=== PATIENT | female | born 1985 | race Caucasian/White ===

== ENCOUNTER 2017-01-21 02:21 | Emergency (ER) | payer BC, OTHER ==
[~2017-01-21] VITALS: Ht 152.4 cm; Wt 99.8 kg
[~2017-01-21 02:21] MED LIST: HYDR1TAB PO; NYST1POW15 TOP; SULF1TAB38 PO
--- OUTSIDE RECORDS SUMMARY | 2017-01-21 02:27 | XMS REPORT ---
Author ANDREA Gaming [facility] eClinicalWorks Address Unknown Phone Unavailable Care Team Providers Care Sample Card Maker Name Role Phone ANDREA DWYER CP Unavailable Allergies, Adverse Reactions, Alerts Substance Reaction Event Type N.K.D.A. Info Not Available Non Drug Allergy Problems Problem Type Condition Code Onset Dates Condition Status Assessment Dental examination Z01.20 Active Medications Medication Code System Code Instructions Start Date End Date Status Dosage [employer] [facility] [address]-46 5-325 MG Orally every 6 hrs Mar 25, 2016 Mar 29, 2016 1 tablet as needed Amoxicillin [facility] [address]-21 500 MG Orally 4 times daily Mar 25, 2016 Apr 01, 2016 1 capsule Procedures Procedure Coding System Code Date INTRAORL-PERIAPICAL 1 FILM 71828 CPT-4 D0220 Mar 25, 2016 LTD ORAL EVALUATION - PROBLEM FOCUS CPT-4 D0140 Mar 25, 2016 Vital Signs Date/Time: Mar 25, 2016 Blood Pressure Diastolic 75 mmHg Blood Pressure Systolic 128 mmHg Results No Known Results Summary Purpose eClinicalWorks Submission
--- OUTSIDE RECORDS SUMMARY | 2017-01-21 02:27 | XMS REPORT | Continuity of Care Document ---
Author Author [facility] Organization [facility] Address Unknown Phone Unavailable Allergies Active Description Code Type Severity Reaction Onset Reported/Identified Relationship to Patient Clinical Status Yes No Known Drug Allergies [id number] Drug Allergy Unknown N/ A 01/04/2009 Medications Problems Date Dx Coded Attending Type Code Diagnosis Diagnosed By 03/23/2009 Ot 727.04 04/09/2009 Ot 719.42 04/09/2009 Ot 727.05 04/09/2009 Ot 832.01 04/09/2009 Ot E000.8 04/09/2009 Ot E029.9 04/09/2009 Ot E927.0 04/09/2009 Ot V57.21 04/25/2009 Ot 719.42 04/25/2009 Ot 727.05 04/25/2009 Ot 832.01 04/25/2009 Ot E000.8 04/25/2009 Ot E029.9 04/25/2009 Ot E927.0 04/25/2009 Ot V57.21 10/08/2012 ERIKA STEWART, NURYS Turner Ot 574.20 10/08/2012 ERIKA STEWART, NURYS [place] Ot 620.2 10/08/2012 ERIKA STEWART, NURYS Turner Ot 789.00 02/20/2013 KHADRA FUENTES MD Ot 682.2 02/20/2013 KHADRA FUENTES MD Ot 782.2 05/10/2014 Ot 959.7 05/10/2014 Ot E000.8 05/10/2014 Ot E030 05/10/2014 Ot E849.6 05/10/2014 Ot E888.9 05/10/2014 Ot 719.07 05/10/2014 Ot 719.47 05/10/2014 Ot 719.47 05/10/2014 Ot 959.7 05/10/2014 Ot E000.8 05/10/2014 Ot E849.4 05/10/2014 Ot E928.9 02/11/2015 Ot 719.07 02/11/2015 Ot 719.47 02/11/2015 Ot 719.47 02/11/2015 Ot 959.7 02/11/2015 Ot E000.8 02/11/2015 Ot E849.4 02/11/2015 Ot E928.9 02/11/2015 KHADRA FUENTES MD Ot 218.9 02/11/2015 KHADRA FUENTES MD Ot 789.02 02/11/2015 Ot 719.07 02/11/2015 Ot 719.47 02/11/2015 Ot 719.47 02/11/2015 Ot 959.7 02/11/2015 Ot E000.8 02/11/2015 Ot E849.4 02/11/2015 Ot E928.9 Procedures Results Encounters ACCT No. Visit Date/Time Discharge Status Pt. Type Provider Facility Loc./Unit Complaint [id number] 02/11/2015 04:40:00 2014 06:28:00 DIS Emergency KHADRA FUENTES MD [facility] ER [id number] 01/14/2015 14:37:00 2014 23:59:59 CLS Outpatient GIO LAURENT [facility] QUICK [id number] 02/20/2013 17:33:00 2012 19:33:00 DIS Emergency KHADRA FUENTES MD [facility] ER [id number] 10/08/2012 16:56:00 2012 18:03:00 DIS Emergency NURYS JAMES MD [facility] ER [id number] 05/10/2014 14:32:00 Document Registration [id number] 09/03/2011 10:44:00 Document Registration [id number] 02/12/2010 11:59:00 Document Registration [id number] 08/09/2009 12:05:00 Document Registration [id number] 04/11/2009 09:14:00 Document Registration [id number] 04/04/2009 10:51:00 Document Registration [id number] 03/22/2009 11:30:00 Document Registration
[2017-01-21] MEDS ORDERED: HYDR30SU6 RC (02:47)
--- NOTE | 2017-01-21 02:48 | ED GI ---
General Chief Complaint: Rect Problems Stated Complaint: RECTAL BLEEDING Source of Information: Patient History of Present Illness Time Seen By Provider: 02:35 Initial Comments PT STATES SHE HAD A BM EARLIER THIS EVENING AT 1800 AND SHE NOTICED A SMALL AMOUNT OF BRIGHT RED BLOOD ON THE TISSUE WITH WIPING DENIES HAVING CONSTIPATION OR STRAINING TO HAVE A BOWEL MOVEMENT WENT TO WORK AT 2200 TONIGHT AT [employer]. SHE WENT TO THE BATHROOM TO URINATE WHILE AT WORK AND NOTICED BRIGHT RED BLOOD ON TISSUE WHEN SHE WIPED HER RECTAL AREA AGAIN SO LEFT WORK AND CAME STRAIGHT HERE NO RECTAL PAIN NO ABDOMINAL OR BACK PAIN NO URINARY SYMPTOMS NO VAGINAL BLEEDING OR DISCHARGE NO HISTORY OF SIMILAR PCP: [facility] Allergies and Home Medications Allergies Coded Allergies: No Known Drug Allergies (Verified Allergy, Unknown, 01/04/09) Home Medications Hydrocortisone Acetate 30 Mg Supp.rect, 30 MG RC BID, #10 Prescribed by: GHASSAN STRANGE on 01/21/17 0247 Review of Systems Constitutional: no symptoms reported Respiratory: No Symptoms Reported Cardiovascular: No Symptoms Reported Gastrointestinal: See HPI Genitourinary: No Symptoms Reported Musculoskeletal: no symptoms reported Skin: no symptoms reported Psychiatric/Neurological: No Symptoms Reported Endocrine: No Symptoms Reported Hematologic/Lymphatic: No Symptoms Reported Past Fsuovgd-Htxrma-Nqmmug Hx Patient Social History Alcohol Use: Denies Use Recreational Drug Use: No Smoking Status: Current Everyday Smoker (1/2 -1 PPD) Type Used: Cigarettes Recent Foreign Travel: No Contact w/Someone Who Travel: No Surgeries HX Surgeries: Yes (UMB.HERNIA REPAIR; PILONIDAL ABSCESS/CYST; D&C; X 2; RIGHT WRIST SURGEYR TO REMOVE GLASS) Surgeries: Abdominal, Appendectomy, Section, Orthopedic, Tubal Ligation Respiratory Hx Respiratory Disorders: No Cardiovascular Hx Cardiac Disorders: No Neurological Hx Neurological Disorders: No Reproductive System : No Hx Reproductive Disorders: Yes (X1 MISCARRIAGE) 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 Genitourinary Hx Genitourinary Disorders: No Gastrointestinal Hx Gastrointestinal Disorders: No Musculoskeletal Hx Musculoskeletal Disorders: No Endocrine Hx Endocrine Disorders: No HEENT HX ENT Disorders: No Cancer Hx Cancer: No Psychosocial Hx Psychiatric Problems: No Integumentary HX Skin/Integumentary Disorder: No Blood Transfusions Hx Blood Disorders: No Physical Exam Vital Signs VS - Last 72 Hours, by Label 01/21/17 01/21/17 02:27 02:50 Temp 97.7 Pulse 67 0 Resp 18 0 B/P (MAP) 145/91 Pulse Ox 99 0 O2 Delivery Room Air Capillary Refill : General Appearance: WD/WN, no apparent distress Respiratory: normal breath sounds Cardiovascular: regular rate, rhythm Gastrointestinal: normal bowel sounds, non tender, soft, no organomegaly, no pulsatile mass Rectal: hemorrhoids (SMALL, NON-THROMBOSED/NON-INFLAMED HEMORRHOIDS AT 12:00 AND 6:00, WITH SMALL FISSUE ON THE 6:00 HEMORRHOID, WITH SCANT AMOUNT OF DRIED BLOOD OVER IT. NON-TENDER. NO EVIDENCE OF ABSCESS. ), mass Extremities: normal inspection Neurologic/Psychiatric: no motor/sensory deficits, alert, normal mood/affect, oriented x 3 Skin: normal color, warm/dry Progress/Results/Core Measures Results/Orders Vital Signs/I&O Vital Sign - Last 12Hours 01/21/17 01/21/17 02:27 02:50 Temp 97.7 Pulse 67 0 Resp 18 0 B/P (MAP) 145/91 Pulse Ox 99 0 O2 Delivery Room Air Departure Impression Impression: Primary Impression: Anal fissure Additional Impression: Bleeding external hemorrhoids Disposition: HOME, SELF-CARE Condition: Stable Departure-Patient Inst. Referrals: NO,LOCAL PHYSICIAN (PCP/Family) Primary Care Physician Patient Instructions: Hemorrhoids (DC), Anal Fissure (DC) Add. Discharge Instructions: TAKE COLACE STOOL SOFTENER DAILY--UP TO 4 PILLS A DAY LOTS OF CLEAR LIQUIDS FOLLOW UP WITH IN 3-4 DAYS FOR FURTHER CARE All discharge instructions reviewed with patient and/or family. Voiced understanding. Scripts Hydrocortisone Acetate (Proctocort) 30 Mg Supp.rect 30 MG RC BID, #10 SUPP.RECT Prov: GHASSAN STRANGE DO 01/21/17 GHASSAN STRANGE DO Jan 21, 2017 02:48
[2017-01-21 02:50] VITALS: BP 0/0
== END 2017-01-21 02:50 | disposition home or self-care (01) ==
LOC: EDUNIT# 02:21 → ER 02:23
DX: K60.2 Anal fissure, unspecified (principal); K64.4 Residual hemorrhoidal skin tags; F17.210 Nicotine dependence, cigarettes, uncomplicated; Z87.19 Personal history of other diseases of the digestive system; Z87.59 Personal history of other complications of pregnancy, childbirth and the puerperium; Z90.49 Acquired absence of other specified parts of digestive tract; Z98.51 Tubal ligation status
CPT/HCPCS: 99282

== ENCOUNTER → 2017-04-06 | Outpatient (CLI) | payer BC ==
[~2017-04-06] MED LIST changes: +HYDR30SU6 RC
--- NOTE | 2017-04-06 18:45 | Diagnostic Imaging Report ---
Indication: Palpable abnormality of the fourth finger. Findings: AP, oblique and lateral views of the right hand reveal no fracture or malalignment. There is no abnormal lytic or sclerotic focus. No radiopaque foreign body is seen. Impression: No acute osseous abnormality is identified. Dictated by: Dictated on workstation # [id number]
== END ==
LOC: RAD 17:57
PROVIDERS: ATTEND Nurse Practitioner Family
DX: M79.641 Pain in right hand (principal)
CPT/HCPCS: 73130

== ENCOUNTER 2019-06-15 08:27 | Outpatient (RCR) | payer BC | END 2019-07-06 10:53 | disposition home or self-care (01) | PROVIDERS: ATTEND Nurse Practitioner Primary Care | DX: G56.01 Carpal tunnel syndrome, right upper limb (principal); M25.511 Pain in right shoulder; M62.81 Muscle weakness (generalized) ==

== ENCOUNTER 2021-06-25 15:51 | Emergency (ER) | payer BC ==
[~2021-06-25] VITALS: Ht 149 cm; Wt 106.5 kg
[2021-06-25 16:07] LABS: BASOPHILS % (AUTO) 0 % (0-10); EOSINOPHILS # (AUTO) 0.1 10^3/uL (0.0-0.3); EOSINOPHILS % (AUTO) 2 % (0-10); HEMATOCRIT 45 % (35-52); HEMOGLOBIN 14.5 g/dL (11.5-16.0); LYMPHOCYTES # (AUTO) 2.6 10^3/uL (1.0-4.0); LYMPHOCYTES % (AUTO) 31 % (12-44); MEAN CORPUSCULAR HEMOGLOBIN 27 pg (25-34); MEAN CORPUSCULAR HGB CONC 33 g/dL (32-36); MEAN CORPUSCULAR VOLUME 82 fL (80-99); MEAN PLATELET VOLUME 11.5 fL (9.0-12.2); MONOCYTES # (AUTO) 0.5 10^3/uL (0.0-1.0); MONOCYTES % (AUTO) 6 % (0-12); NEUTROPHILS # (AUTO) 5.1 10^3/uL (1.8-7.8); NEUTROPHILS % (AUTO) 61 % (42-75); PLATELET COUNT 218 10^3/uL (130-400); WHITE BLOOD COUNT 8.3 10^3/uL (4.3-11.0)
[2021-06-25] MEDS ORDERED: FAMOTIDINE 20 MG (PEPCID) TABLET PO STA (16:09)
[2021-06-25] MEDS ORDERED: LIDOCAINE 2% VISCOUS 15 ML UDC PO ONE (16:15)
[2021-06-25] MEDS ORDERED: ASPIRIN 81 MG CHEW (CHILDREN'S ASA) PO ONE (16:15)
[2021-06-25] MEDS ORDERED: ONDANSETRON 4 MG/2 ML (SDV) Z0FRAN IVP ONE (16:15)
[2021-06-25] MEDS ORDERED: ANTACID SUSP 30 ML UDC (MYLANTA) PO ONE (16:15)
[2021-06-25 16:18] LABS: ALBUMIN 4.2 GM/DL (3.2-4.5); POTASSIUM 4.1 MMOL/L (3.6-5.0); PROTHROMBIN TIME PATIENT 13.2 SEC (12.2-14.7)
--- NOTE | 2021-06-25 16:19 | Diagnostic Imaging Report ---
INDICATION: Chest pain. TECHNIQUE: Frontal chest obtained at 04:19 p.m. FINDINGS: Heart and mediastinal silhouette are normal in appearance. The lungs are clear. There is no pneumothorax or pleural fluid. IMPRESSION: Negative chest. Dictated by: Dictated on workstation # [id number]
[2021-06-25 16:20] LABS: CALCIUM 9.4 MG/DL (8.5-10.1)
[2021-06-25 16:21] LABS: TOTAL PROTEIN 7.5 GM/DL (6.4-8.2)
[2021-06-25 16:23] LABS: BILIRUBIN,TOTAL 0.4 MG/DL (0.1-1.0)
[2021-06-25 16:24] LABS: CREATININE SERUM 0.78 MG/DL (0.60-1.30)
[2021-06-25 16:27] LABS: MAGNESIUM 2.1 MG/DL (1.6-2.4)
--- NOTE | 2021-06-25 16:57 | ED Chest Pain ---
General Chief Complaint: Chest Pain Stated Complaint: CHEST PAIN Nursing Triage Note: PT PRESENTS TO ED VIA POV FROM HOME WITH COMPLAITNS OF CP STARTING AT 0530 THIS AM WHILE AT WORK. Source: patient Exam Limitations: no limitations History of Present Illness Date Seen by Provider: Jun 25, 2021 Time Seen by Provider: 15:55 Initial Comments This 36-year-old woman presents to the emergency room with complaints of a chest heaviness in the central chest that started while working at [employer] this morning around 0530 this morning. Pain has been constant. She denies any exacerbating or alleviating factors. She started metformin yesterday and wonders if perhaps that was the cause. She denies any associated symptoms such as shortness of breath, cough, lightheadedness, nausea, vomiting, diarrhea, fever, etc. Allergies and Home Medications Allergies Coded Allergies: No Known Drug Allergies (Verified Allergy, Unknown, 01/04/09) Patient Home Medication List Home Medication List Reviewed: Yes Hydrocortisone Acetate (Proctocort) 30 Mg Supp.rect, 30 MG RC BID Prescribed by: GHASSAN STRANGE on 01/21/17 0247 Omeprazole (Omeprazole) 20 Mg Capsule.dr, 20 MG PO BID Prescribed by: ZACKERY TABOR on 06/25/21 1714 Review of Systems Review of Systems Constitutional: no symptoms reported EENTM: No Symptoms Reported Respiratory: No Symptoms Reported Cardiovascular: See HPI Gastrointestinal: See HPI Genitourinary: No Symptoms Reported Musculoskeletal: no symptoms reported Skin: no symptoms reported Psychiatric/Neurological: No Symptoms Reported Endocrine: No Symptoms Reported Hematologic/Lymphatic: No Symptoms Reported Past Wbovzwe-Ansqaw-Twwdqx Hx Patient Social History Tobacco Use?: Yes Tobacco type used: Cigarettes Smoking Status: Current Everyday Smoker Substance use?: No Alcohol Use?: No Pt feels they are or have been: No Immunizations Up To Date First/Initial COVID19 Vaccinat: NOVEMBER 2020 COVID19 Vaccine [employer]: [employer] Past Medical History Surgery/Hospitalization HX: PMH: C-SEC, DNC, TUBAL, APPY DIABETES Surgeries: Yes (UMB.HERNIA REPAIR,COCCYX CYST,WRIST SURG.) Abdominal, Appendectomy, Section, Orthopedic (Wrist), Tubal Ligation Respiratory: No Cardiac: Yes High Cholesterol Neurological: No Reproductive Disorders: Yes (X1 MISCARRIAGE) 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 oz. 99.932388oh; 47.00 BMI Method:Stated General Appearance: No Apparent Distress, WD/WN HEENT: PERRL/EOMI, Normal ENT Inspection Neck: Normal Inspection Respiratory: Lungs Clear, Normal Breath Sounds, No Accessory Muscle Use, No Respiratory Distress, Other (Central anterior chest wall tender to palpation) Cardiovascular: Regular Rate, Rhythm, No Edema, No Murmur, Normal Peripheral Pulses Gastrointestinal: Normal Bowel Sounds, Soft, Tenderness (Epigastrium and left upper quadrant) Extremity: Normal Inspection, Non Tender, No Calf Tenderness, No Pedal Edema Neurologic/Psychiatric: Alert, Oriented x3, No Motor/Sensory Deficits, Normal Mood/Affect Skin: Normal Color, Warm/Dry Progress/Results/Core Measures Results/Orders Lab Results Laboratory Tests Test 06/25/21 15:58 Range/Units White Blood Count 8.3 4.3-11.0 10^3/uL Red Blood Count 5.41 H 3.80-5.11 10^6/uL Hemoglobin 14.5 11.5-16.0 g/dL Hematocrit 45 35-52 % Mean Corpuscular Volume 82 80-99 fL Mean Corpuscular Hemoglobin 27 25-34 pg Mean Corpuscular Hemoglobin Concent 33 32-36 g/dL Red Cell Distribution Width 13.0 10.0-14.5 % Platelet Count 218 130-400 10^3/uL Mean Platelet Volume 11.5 9.0-12.2 fL Immature Granulocyte % (Auto) 1 % Neutrophils (%) (Auto) 61 42-75 % Lymphocytes (%) (Auto) 31 12-44 % Monocytes (%) (Auto) 6 0-12 % Eosinophils (%) (Auto) 2 0-10 % Basophils (%) (Auto) 0 0-10 % Neutrophils # (Auto) 5.1 1.8-7.8 10^3/uL Lymphocytes # (Auto) 2.6 1.0-4.0 10^3/uL Monocytes # (Auto) 0.5 0.0-1.0 10^3/uL Eosinophils # (Auto) 0.1 0.0-0.3 10^3/uL Basophils # (Auto) 0.0 0.0-0.1 10^3/uL Immature Granulocyte # (Auto) 0.1 0.0-0.1 10^3/uL Prothrombin Time 13.2 12.2-14.7 SEC INR Comment 1.0 0.8-1.4 Activated Partial Thromboplast Time 43 H 24-35 SEC Sodium Level 139 135-145 MMOL/L Potassium Level 4.1 3.6-5.0 MMOL/L Chloride Level 105 98-107 MMOL/L Carbon Dioxide Level 21 21-32 MMOL/L Anion Gap 13 5-14 MMOL/L Blood Urea Nitrogen 10 7-18 MG/DL Creatinine 0.78 0.60-1.30 MG/DL Estimat Glomerular Filtration Rate 100 BUN/Creatinine Ratio 13 Glucose Level 135 H 70-105 MG/DL Calcium Level 9.4 8.5-10.1 MG/DL Corrected Calcium 9.2 8.5-10.1 MG/DL Magnesium Level 2.1 1.6-2.4 MG/DL Total Bilirubin 0.4 0.1-1.0 MG/DL Aspartate Amino Transf (AST/SGOT) 13 5-34 U/L Alanine Aminotransferase (ALT/SGPT) 18 0-55 U/L Alkaline Phosphatase 69 40-136 U/L Myoglobin 30.6 10.0-92.0 NG/ML Troponin I < 0.028 <0.028 NG/ML Total Protein 7.5 6.4-8.2 GM/DL Albumin 4.2 3.2-4.5 GM/DL Lipase 38 8-78 U/L My Orders Orders - ZACKERY VALDEZ MD Cbc With Automated Diff (06/25/21 16:01) Magnesium (06/25/21 16:01) Chest 1 View, Ap/Pa Only (06/25/21 16:01) Ekg Tracing (06/25/21 16:01) Comprehensive Metabolic Panel (06/25/21 16:01) Myoglobin Serum (06/25/21 16:01) Protime With Inr (06/25/21 16:01) Partial Thromboplastin Time (06/25/21 16:01) O2 (06/25/21 16:01) Monitor-Rhythm Ecg Trace Only (06/25/21 16:01) Lipid Panel (06/26/21 06:00) Ed Iv/Invasive Line Start (06/25/21 16:01) Troponin I Heraclio (06/25/21 16:01) Ondansetron Injection (Zofran Injectio (06/25/21 16:15) Lidocaine 2% Viscous 15 Ml (Xylocaine Vi (06/25/21 16:15) Famotidine Tablet (Pepcid Tablet) (06/25/21 16:09) Antacid Suspension (Mylanta Suspension (06/25/21 16:15) Lipase (06/25/21 16:09) Aspirin Chewable Tablet (Baby Aspirin Ch (06/25/21 16:15) Medications Given in ED Current Medications Medications Dose Ordered Sig/Rica Route Start Time Stop Time Status Last Admin Dose Admin Al Hydrox/Mg Hydrox/Simethicone 30 ml ONCE ONCE PO 06/25/21 16:15 06/25/21 16:16 DC 06/25/21 16:18 30 ML Aspirin 324 mg ONCE ONCE PO 06/25/21 16:15 06/25/21 16:16 DC 06/25/21 16:18 324 MG Lidocaine HCl 15 ml ONCE ONCE PO 06/25/21 16:15 06/25/21 16:16 DC 06/25/21 16:18 15 ML Ondansetron HCl 4 mg ONCE ONCE IVP 06/25/21 16:15 06/25/21 16:16 DC 06/25/21 16:18 4 MG Vital Signs/I&O 06/25/21 15:58 Temp 36.7 Pulse 78 Resp 16 B/P (MAP) 171/102 (125) Pulse Ox 99 Blood Pressure Mean: 125 Progress Progress Note : Time: 17:23 Progress Note Patient's exam findings are more consistent with GI etiology. She has tenderness to palpation in the epigastrium, left upper quadrant, and chest wall. She received Pepcid, Zofran, and GI cocktail with reduction in her pain from 6/10 down to 4/10. She thinks the medication made a notable difference. Cardiopulmonary work-up was unremarkable. See discharge instructions for further discussion. Initial ECG Impression Date: Jun 25, 2021 Initial ECG Impression Time: 15:55 Initial ECG Rate: 71 Initial ECG Rhythm: Normal Sinus Initial ECG Intervals: Normal Initial ECG Impression: Normal Comment Normal sinus rhythm with no ST elevation or depression. No abnormal intervals or axis deviation Diagnostic Imaging Diagonstic Imaging: Xray Plain Films/CT/US/NM/MRI: chest Comments Normal sinus rhythm with no ST elevation or depression. No abnormal intervals or axis deviation. Departure Impression Primary Impression: Atypical chest pain Additional Impression: Upper abdominal pain Disposition: HOME, SELF-CARE Condition: Improved Departure-Patient Inst. Decision time for Depature: 17:03 Referrals: ZEV RAMACHANDRAN APRN (PCP) Primary Care Physician [facility] (Family) Primary Care Physician Patient Instructions: Acid Reflux and Gastroesophageal Reflux Disease in Adults, Chest Pain That Is Not Caused by the Heart (DC), Gastritis Add. Discharge Instructions: The characteristics of your pain fit most closely with a gastrointestinal source such as acid reflux, gastritis, or esophagitis. Take omeprazole for at least 2 weeks as prescribed. Avoid the following: Eating large meals, eating close to bedtime, caffeine, carbonation, chocolate, tobacco, alcohol, citrus fruits and juices, tomato pro ducts, spicy foods, fatty or greasy foods, mints, NSAID medications such as ibuprofen or naproxen, or anything else you know irritate your stomach. Elevating the head of your bed at bedtime can also help reduce acid reflux by allowing gravity to work in your favor. If your pain is not completely resolved within 2 weeks, please follow-up with your primary care provider. Work toward quitting smoking and weight reduction as these measures are good for your overall health and can reduce symptoms of acid reflux and gastritis. Call with questions or concerns. Return to the ER if you have worsening symptoms. All discharge instructions reviewed with patient and/or family. Voiced understanding. Scripts Omeprazole (Omeprazole) 20 Mg Capsule. 20 MG PO BID, #60 CAP Prov: ZACKERY VALDEZ MD 06/25/21 Copy Copies To 1: DIONNE MANZO JOSHUA T MD Jun 25, 2021 16:57
[2021-06-25] MEDS ORDERED: OMEP20CA18 PO (17:14)
[2021-06-25 17:31] VITALS: BP 129/58
== END 2021-06-25 17:30 | disposition home or self-care (01) ==
LOC: EDUNIT# 15:51 → ER 15:52
DX: R07.89 Other chest pain (principal); R10.10 Upper abdominal pain, unspecified; E66.9 Obesity, unspecified; Z68.42 Body mass index [BMI] 45.0-49.9, adult; F17.210 Nicotine dependence, cigarettes, uncomplicated
CPT/HCPCS: 36415; 71045; 80053; 83690; 83735; 83874; 84484; 85025; 85610; 85730; 93041